=== PATIENT | male | born 1950 | race Caucasian/White ===

== ENCOUNTER 2023-11-30 08:04 | Outpatient (RCR) | payer MEDICARE, SELFPAY | END 2024-01-20 17:00 | disposition home or self-care (01) | LOC: HO.WCC 08:04 | PROVIDERS: PCP Internal Medicine; Visit Provider Surgery | DX: L97.412 Non-pressure chronic ulcer of right heel and midfoot with fat layer exposed (principal); M21.542 Acquired clubfoot, left foot; G60.0 Hereditary motor and sensory neuropathy; Z79.82 Long term (current) use of aspirin; Z79.899 Other long term (current) drug therapy | CPT/HCPCS: 11042; 15275; 99212; Q4187 ==

== ENCOUNTER 2024-03-21 08:56 | Outpatient (RCR) | payer MEDICARE, SELFPAY | END 2024-03-21 15:00 | disposition home or self-care (01) | LOC: HO.WCC 08:56 | PROVIDERS: PCP Internal Medicine; Visit Provider Surgery | DX: Z09 Encounter for follow-up examination after completed treatment for conditions other than malignant neoplasm (principal); G60.9 Hereditary and idiopathic neuropathy, unspecified; L84 Corns and callosities; I10 Essential (primary) hypertension; Z87.891 Personal history of nicotine dependence | CPT/HCPCS: 99212 ==